=== PATIENT | female | born 1930 | race Caucasian/White ===

== ENCOUNTER → 2016-05-31 | Day surgery (SDC) | payer MEDICARE, OTHER ==
[2016-05-31 09:20] LABS: HCT 35.3 % (37.0-47.0); HGB 10.7 g/dl (12.5-16.0); MCH 25.4 pg (25.0-31.0); MCHC 30.3 g/dL (32.0-36.0); MCV 83.6 fL (78.0-100.0); RBC 4.22 M/uL (4.20-5.40); RDW 17.6 % (11.5-14.0); WBC 5.9 K/uL (4.0-10.5)
[2016-05-31 09:30] LABS: ALBUMIN 4.7 g/dL (3.4-4.8); BILIRUBIN - TOTAL 0.4 mg/dL (0.1-1.0); CREATININE 1.1 mg/dL (0.5-1.0); GLOBULIN (CALCULATION) 3.2 g/dL (2.2-4.2); POTASSIUM 4.4 mmol/L (3.5-5.1); TOTAL PROTEIN 7.9 g/dL (6.4-8.3)
== END | disposition home or self-care (01) ==
LOC: FAS 08:17
PROVIDERS: Surgery
DX: D12.6 Benign neoplasm of colon, unspecified (principal); K57.90 Diverticulosis of intestine, part unspecified, without perforation or abscess without bleeding; K45.8 Other specified abdominal hernia without obstruction or gangrene; I10 Essential (primary) hypertension; E11.9 Type 2 diabetes mellitus without complications; E78.00 Pure hypercholesterolemia, unspecified; M19.90 Unspecified osteoarthritis, unspecified site; H26.9 Unspecified cataract; Z93.3 Colostomy status; Z90.710 Acquired absence of both cervix and uterus; Z90.721 Acquired absence of ovaries, unilateral; Z88.0 Allergy status to penicillin; Z88.2 Allergy status to sulfonamides; Z88.8 Allergy status to other drugs, medicaments and biological substances; Z82.61 Family history of arthritis; Z82.49 Family history of ischemic heart disease and other diseases of the circulatory system; Z82.62 Family history of osteoporosis; Z82.5 Family history of asthma and other chronic lower respiratory diseases; Z85.048 Personal history of other malignant neoplasm of rectum, rectosigmoid junction, and anus; Z79.84 Long term (current) use of oral hypoglycemic drugs; Z79.899 Other long term (current) drug therapy
CPT/HCPCS: 36415; 80053; J2704